=== PATIENT | male | born 1975 | race Caucasian/White ===

== ENCOUNTER 2020-06-03 08:40 | Outpatient (CLI) | payer OTHER, SELFPAY ==
--- NOTE | 2020-06-03 | EST_ITS ---
Patient Info Name: Erlin Norris Age: 44 years : 1975 Gender: Male Ht: 68 in Wt: 190 lbs BSA: 2.05 m2 Exam Date: 06/03/2020 9:01 AM Exam Location: [facility] Stress Patient Status: Outpatient Admit Date: 06/03/2020 Staff Ordering Physician: Margarito Metcalf MD Attending Provider: Margarito Metcalf MD Exercise Technologist: Lali Andino RDCS Exercise Physician: Octavio Vines DO Exam Type: CA stress test treadmill Study Info Indications R07.9 - Chest pain, unspecified A treadmill exercise stress test was performed. Summary 1. 1. Negative Dov exercise stress test for ischemic ST changes by ECG criteria. 2. 2. Good functional capacity, achieving 10 METs of workload. 3. 3. Baseline hypertension with hypertensive response to exercise. 4. 4. Appropriate HR response to exercise. 5. 5. Appropriate HR recovery at 1 minute post exercise. 6. 6. No imaging with stress testing. 7. 7. Patient informed of the above results. Protocol: Dov Stress ECG Details Stage: REST Duration (min): 10 min : 53 sec Speed (mph): 0.0 Grade (%): 0 HR (bpm): 97 SBP (mmHg): 175 DBP (mmHg): 111 METS: --- Stage: REST Duration (min): 18 min : 44 sec Speed (mph): 0.0 Grade (%): 0 HR (bpm): 103 SBP (mmHg): 175 DBP (mmHg): 111 METS: --- Stage: STAGE 1 Duration (min): 1 min : 0 sec Speed (mph): 1.7 Grade (%): 10 HR (bpm): 121 SBP (mmHg): 175 DBP (mmHg): 111 METS: --- Stage: STAGE 1 Duration (min): 2 min : 0 sec Speed (mph): 1.7 Grade (%): 10 HR (bpm): 135 SBP (mmHg): 175 DBP (mmHg): 111 METS: --- Stage: STAGE 1 Duration (min): 3 min : 0 sec Speed (mph): 1.7 Grade (%): 10 HR (bpm): 143 SBP (mmHg): 185 DBP (mmHg): 92 METS: --- Stage: STAGE 2 Duration (min): 1 min : 0 sec Speed (mph): 2.5 Grade (%): 12 HR (bpm): 149 SBP (mmHg): 185 DBP (mmHg): 92 METS: --- Stage: STAGE 2 Duration (min): 2 min : 0 sec Speed (mph): 2.5 Grade (%): 12 HR (bpm): 152 SBP (mmHg): 204 DBP (mmHg): 87 METS: --- Stage: STAGE 2 Duration (min): 3 min : 0 sec Speed (mph): 2.5 Grade (%): 12 HR (bpm): 155 SBP (mmHg): 204 DBP (mmHg): 87 METS: --- Stage: STAGE 3 Duration (min): 1 min : 0 sec Speed (mph): 3.4 Grade (%): 14 HR (bpm): 169 SBP (mmHg): 218 DBP (mmHg): 98 METS: --- Stage: STAGE 3 Duration (min): 2 min : 0 sec Speed (mph): 3.4 Grade (%): 14 HR (bpm): 178 SBP (mmHg): 218 DBP (mmHg): 98 METS: --- Stage: STAGE 3 Duration (min): 2 min : 0 sec Speed (mph): 3.4 Grade (%): 14 HR (bpm): 178 SBP (mmHg): 218 DBP (mmHg): 98 METS: --- Stage: RECOVERY Duration (min): 0 min : 59 sec Speed (mph): 0.0 Grade (%): 0 HR (bpm): 160 SBP (mmHg): 217 DBP (mmHg): 100 METS: ---
== END 2020-06-03 08:41 | disposition home or self-care (01) ==
PROVIDERS: PCP Emergency Medicine; Visit Provider Emergency Medicine
DX: R07.9 Chest pain, unspecified (principal)
CPT/HCPCS: 93017